=== PATIENT | female | born 1955 | race Caucasian/White ===

== ENCOUNTER → 2024-02-23 19:44 | Outpatient (REF) | payer OTHER, SELFPAY | LOC: MRI 3T 19:44 | PROVIDERS: ATTENDING PHYSICIAN Orthopaedic Surgery Sports Medicine; FAMILY PHYSICIAN Internal Medicine | DX: M54.32 Sciatica, left side (principal) | CPT/HCPCS: 72148 ==

== ENCOUNTER → 2024-03-18 10:28 | Outpatient (REF) | payer OTHER, SELFPAY ==
[2024-03-18 12:40] LABS: % Basophils 0.6 % (0-2); % Eosinophils 1.7 % (0-6); % Lymphocytes 72.3 % (20.5-51.1); % Monocytes 8.5 % (1.7-9.3); % Neutrophils 16.9 % (42.2-75.2); Absolute Eosinophils 0.1 10^3/uL (0-0.7); Absolute Lymphocytes 2.5 10^3/uL (1.2-3.4); Absolute Monocytes 0.3 10^3/uL (0.1-0.6); Absolute Neutrophils 0.6 10^3/uL (1.4-6.5); Hemoglobin 14.8 g/dL (12.0-16.0); Mean Corp Hgb Conc. 33.6 g/dL (33.0-37.0); Mean Corpuscular Hgb 30.6 pg (27.0-31.0); Mean Corpuscular Volume 91.1 fL (81.0-99.0); Mean Platelet Volume 9.8 fL (7.4-10.4); Nucleated Red Blood Cells % 0 %; Platelet Count 196 10^3/uL (130-400); Red Blood Cell Count 4.83 10^6/uL (4.20-5.40); Red Cell Dist. Width 12.5 % (11.5-14.5); White Blood Cell Count 3.4 10^3/uL (4.8-10.8)
[2024-03-18 12:51] LABS: Glycohemoglobin (HgbA1c) 6.5 % (4.0-5.6)
[2024-03-18 12:59] LABS: Blood Urea Nitrogen 18 mg/dl (7-17); Carbon Dioxide 31 mmol/L (22-30); Chloride 96 mmol/L (98-107); Glucose 111 mg/dl (70-99); Potassium 3.6 mmol/L (3.5-5.1); Sodium 133 mmol/L (135-145); eGFR > 60.00
== END ==
LOC: HWRAD 10:28
PROVIDERS: ATTENDING PHYSICIAN Physician Assistant; FAMILY PHYSICIAN Internal Medicine
DX: M06.09 Rheumatoid arthritis without rheumatoid factor, multiple sites (principal); M54.2 Cervicalgia; I10 Essential (primary) hypertension; D72.819 Decreased white blood cell count, unspecified; R73.01 Impaired fasting glucose
CPT/HCPCS: 36415; 72052; 80048; 83036; 85025

== ENCOUNTER → 2024-04-02 08:17 | Outpatient (REF) | payer OTHER, SELFPAY ==
[2024-04-02 09:18] LABS: % Basophils 1.1 % (0-2); % Eosinophils 3.5 % (0-6); % Monocytes 7.2 % (1.7-9.3); % Neutrophils 12.2 % (42.2-75.2); Absolute Eosinophils 0.1 10^3/uL (0-0.7); Absolute Lymphocytes 2.9 10^3/uL (1.2-3.4); Absolute Monocytes 0.3 10^3/uL (0.1-0.6); Absolute Neutrophils 0.5 10^3/uL (1.4-6.5); Hematocrit 41.2 % (37.0-47.0); Hemoglobin 13.9 g/dL (12.0-16.0); Mean Corp Hgb Conc. 33.7 g/dL (33.0-37.0); Mean Corpuscular Hgb 30.5 pg (27.0-31.0); Mean Corpuscular Volume 90.4 fL (81.0-99.0); Mean Platelet Volume 9.6 fL (7.4-10.4); Nucleated Red Blood Cells % 0 %; Platelet Count 211 10^3/uL (130-400); Red Blood Cell Count 4.56 10^6/uL (4.20-5.40); White Blood Cell Count 3.8 10^3/uL (4.8-10.8)
[2024-04-02 09:46] LABS: ALT (SGPT) 21 U/L (0-35); AST (SGOT) 25 U/L (14-36); Alkaline Phosphatase 78 U/L (38-126); Blood Urea Nitrogen 16 mg/dl (7-17); Calcium 9.2 mg/dl (8.4-10.2); Carbon Dioxide 30 mmol/L (22-30); Chloride 102 mmol/L (98-107); Glucose 115 mg/dl (70-99); Potassium 3.6 mmol/L (3.5-5.1); Sodium 139 mmol/L (135-145); Total Bilirubin 0.5 mg/dl (0.2-1.3); Total Protein 6.4 g/dl (6.3-8.2); eGFR > 60.00
[2024-04-02 10:49] LABS: Folate > 20.0 ng/ml (2.76-20)
[2024-04-02 11:51] LABS: Vitamin B12 875 pg/ml (239-931)
[2024-04-04 19:34] LABS: Neutrophil-Associated Abs Negative (Negative)
== END ==
LOC: HWRAD 08:17
PROVIDERS: ATTENDING PHYSICIAN Internal Medicine; REFERRING PHYSICIAN Nurse Practitioner Acute Care
DX: M81.0 Age-related osteoporosis without current pathological fracture (principal); Z12.31 Encounter for screening mammogram for malignant neoplasm of breast; D72.819 Decreased white blood cell count, unspecified; E56.9 Vitamin deficiency, unspecified
CPT/HCPCS: 36415; 77063; 77067; 77080; 80053; 82607; 82746; 85025; 86021

== ENCOUNTER → 2024-06-17 11:35 | Outpatient (REF) | payer OTHER, SELFPAY ==
[2024-06-17 16:54] LABS: Hematocrit 40.6 % (37.0-47.0); Hemoglobin 14.3 g/dL (12.0-16.0); Mean Corp Hgb Conc. 35.2 g/dL (33.0-37.0); Mean Corpuscular Hgb 32.6 pg (27.0-31.0); Mean Corpuscular Volume 92.7 fL (81.0-99.0); Mean Platelet Volume 10.4 fL (7.4-10.4); Platelet Count 200 10^3/uL (130-400); Red Blood Cell Count 4.38 10^6/uL (4.20-5.40); Red Cell Dist. Width 11.8 % (11.5-14.5); White Blood Cell Count 5.7 10^3/uL (4.8-10.8)
[2024-06-17 17:18] LABS: C-Reactive Protein < 5.00 mg/L (0.0-10.00)
[2024-06-17 17:49] LABS: TSH Reflex To Free T4 0.41 uIU/ml (0.47-4.68)
[2024-06-17 18:10] LABS: % Basophils 0.5 % (0-2); % Eosinophils 2.3 % (0-6); % Immature Granulocytes 0.4 % (0-0.5); % Lymphocytes 59.1 % (20.5-51.1); % Monocytes 8.1 % (1.7-9.3); % Neutrophils 29.6 % (42.2-75.2); Absolute Eosinophils 0.1 10^3/uL (0-0.7); Absolute Lymphocytes 3.4 10^3/uL (1.2-3.4); Absolute Monocytes 0.5 10^3/uL (0.1-0.6); Absolute Neutrophils 1.7 10^3/uL (1.4-6.5); Nucleated Red Blood Cells % 0 %
[2024-06-17 18:18] LABS: Free T4 0.79 ng/dl (0.78-2.19)
[2024-06-17 18:57] LABS: Erythrocyte Sed Rate 2 mm/hour (0-20)
== END ==
LOC: HWLAB 11:35
PROVIDERS: ATTENDING PHYSICIAN Internal Medicine
DX: M79.10 Myalgia, unspecified site (principal); R53.83 Other fatigue
CPT/HCPCS: 36415; 84439; 84443; 85025; 85652; 86140

== ENCOUNTER → 2024-07-22 15:35 | Outpatient (REF) | payer OTHER, SELFPAY | LOC: HWRAD 15:35 | PROVIDERS: ATTENDING PHYSICIAN Internal Medicine | DX: R06.02 Shortness of breath (principal); M25.512 Pain in left shoulder; M25.511 Pain in right shoulder | CPT/HCPCS: 71046; 73030 ==

== ENCOUNTER → 2024-08-16 06:49 | Outpatient (REF) | payer OTHER, SELFPAY ==
[2024-08-16] MEDS: FLUSH (NSS) 1 FLUSH IV (08:55)
[2024-08-16] MEDS: LEXISCAN 0.4 MG IV (08:55)
== END ==
LOC: RCS 06:49
PROVIDERS: ATTENDING PHYSICIAN Internal Medicine
DX: R06.02 Shortness of breath (principal); R53.83 Other fatigue
CPT/HCPCS: 93017; J2785

== ENCOUNTER → 2024-08-20 14:31 | Outpatient (REF) | payer OTHER, SELFPAY | LOC: HWRCS 14:31 | PROVIDERS: ATTENDING PHYSICIAN Internal Medicine | DX: R06.02 Shortness of breath (principal); R53.83 Other fatigue | CPT/HCPCS: 93306 ==

== ENCOUNTER → 2024-08-29 10:00 | Outpatient (REF) | payer OTHER, SELFPAY | LOC: HWRAD 10:00 | PROVIDERS: ATTENDING PHYSICIAN Internal Medicine | DX: R35.0 Frequency of micturition (principal) | CPT/HCPCS: 76770 ==

== ENCOUNTER 2024-08-30 07:27 | Day surgery (SDC) | payer OTHER, SELFPAY ==
[2024-08-30] VITALS (11 sets, daily range): BP systolic 89–130; BP diastolic 69–83; BMI 26.5
[2024-08-30] MEDS: NSS 500 IV (10:47)
--- NOTE | 2024-08-30 11:00 | ITS.CL.CATH ---
[employer]st - Catheterization
Cardiac Catheterization
Procedure Report:
CARDIAC CATHETERIZATION REPORT
Date of Procedure: 08/30/2024
Referring: Gavin Guerrero M.D.
INDICATION: Shortness of breath, abnormal SPECT (TID = 1.42)
PROCEDURE:
1. Left heart catheterization.
2. Coronary angiography
ACCESS:
6 Mexican right radial artery.
CATHETERS:
1. 5 Mexican JR4.
2. 5 Mexican JL 3.5.
HEMODYNAMIC DATA
Weight (kg): 65.3
AO (s/d/x, mmHg): 120/70/95
LV (s/x mmHg): 132/15
LEFT VENTRICULOGRAPHY: Not performed.
CORONARY ANGIOGRAPHY
Dominance: Left.
Left Main: Congenitally absent.
LAD: Normal size vessel arising directly off of the aorta and giving rise to 1 significant diagonal. There is no coronary artery disease.
Ramus: Congenitally absent.
Circumflex: Large size, dominant vessel arising directly off of the aorta, giving rise to 2 obtuse marginals before terminating as an LPDA. There is no coronary artery disease.
RCA: Small size, nondominant vessel. There is no coronary artery disease.
INTERVENTION(S)
1. Use of a intracoronary wire for cannulation of the circumflex artery.
Narrative:
The patient has separate ostia of the LAD and circumflex. Unfortunately, we were having significant difficulty cannulating the left circumflex for angiography. In order to engage the catheter, we advanced a power turn flex wire into the left
anterior descending artery, where the catheter would naturally reside. With good purchase of the wire in the LAD, the catheter was withdrawn into the left coronary cusp and a BMW wire was advanced through the catheter. We were able to advance the
BMW wire into the left circumflex. After establishing good wire purchase in the left circumflex, the power turn flex wire was withdrawn from the LAD and readvanced into the circumflex as a emre wire for stability. Using these wires, we advanced
the diagnostic JL 3.5 catheter into the left circumflex for subselective angiography. The wires were subsequently withdrawn after angiography was completed.
Closure Device: Vascular band.
Radiation (mGy): 478.05
DAP (cm2.Gy): 38.6612
Fluoroscopy time (minutes): 6.0
Sedation time (minutes): 31
CONCLUSIONS
1. 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 There is no coronary artery disease.
2. Top normal filling pressures (LVEDP = 15 mmHg at 65.3 kg).
3. False positive stress test.
RECOMMENDATIONS:
1. Expectant management after cardiac catheterization via right radial approach.
2. Limited weight bearing on the right for one week.
3. Continue evaluation for nonischemic sources of dyspnea.
Copy to: Gavin Guerrero M.D., Destinee Nunez M.D.
Tu Rosas DO, FACC, FACP
[2024-08-30] MEDS: NORCO 5/325 1 TABLET PO (11:08)
== END 2024-08-30 13:30 | disposition home or self-care (01) ==
LOC: CATH 07:27
PROVIDERS: ATTENDING PHYSICIAN Internal Medicine Cardiovascular Disease; FAMILY PHYSICIAN Internal Medicine
DX: R06.02 Shortness of breath (principal); Q24.5 Malformation of coronary vessels
CPT/HCPCS: 93458; C1769; C1894; Q9967

== ENCOUNTER → 2024-11-25 12:12 | Outpatient (REF) | payer OTHER, SELFPAY | LOC: DHSLP 12:12 | PROVIDERS: ATTENDING PHYSICIAN Internal Medicine Critical Care Medicine; FAMILY PHYSICIAN Internal Medicine | DX: G47.33 Obstructive sleep apnea (adult) (pediatric) (principal) | CPT/HCPCS: 95800 ==

== ENCOUNTER → 2024-12-09 12:55 | Outpatient (REF) | payer OTHER, SELFPAY ==
[2024-12-09 15:17] LABS: Hematocrit 42.7 % (37.0-47.0); Hemoglobin 14.5 g/dL (12.0-16.0); Mean Corpuscular Hgb 31.8 pg (27.0-31.0); Mean Corpuscular Volume 93.6 fL (81.0-99.0); Mean Platelet Volume 9.6 fL (7.4-10.4); Platelet Count 199 10^3/uL (130-400); Red Blood Cell Count 4.56 10^6/uL (4.20-5.40); Red Cell Dist. Width 11.9 % (11.5-14.5); White Blood Cell Count 4.5 10^3/uL (4.8-10.8)
[2024-12-09 15:42] LABS: % Basophils 0.9 % (0-2); % Eosinophils 1.8 % (0-6); % Lymphocytes 54.4 % (20.5-51.1); % Monocytes 8.1 % (1.7-9.3); % Neutrophils 34.8 % (42.2-75.2); Absolute Eosinophils 0.1 10^3/uL (0-0.7); Absolute Lymphocytes 2.5 10^3/uL (1.2-3.4); Absolute Monocytes 0.4 10^3/uL (0.1-0.6); Absolute Neutrophils 1.6 10^3/uL (1.4-6.5); Nucleated Red Blood Cells % 0 %
[2024-12-10 11:06] LABS: Lyme Antibody Screen, EIA Negative (Negative)
== END ==
LOC: HWLAB 12:55
PROVIDERS: ATTENDING PHYSICIAN Internal Medicine
DX: L03.113 Cellulitis of right upper limb (principal)
CPT/HCPCS: 36415; 85025; 86618

== ENCOUNTER 2025-09-03 06:16 | Day surgery (SDC) | payer OTHER, SELFPAY | END 2025-09-03 08:55 | disposition home or self-care (01) | LOC: GI 06:16 | PROVIDERS: ATTENDING PHYSICIAN Surgery | DX: Z12.11 Encounter for screening for malignant neoplasm of colon (principal); D12.3 Benign neoplasm of transverse colon; K57.30 Diverticulosis of large intestine without perforation or abscess without bleeding; K62.1 Rectal polyp; R19.4 Change in bowel habit; Z86.0100 Personal history of colon polyps, unspecified | CPT/HCPCS: 45385; 45380; 88305 ==